=== PATIENT | male | born 1945 | race Caucasian/White ===

== ENCOUNTER 2021-06-21 07:07 | Day surgery (SDC) | payer MEDICARE, OTHER, SELFPAY ==
[2021-06-14 10:42] VITALS: BMI 26.6
--- NOTE | 2021-06-20 12:45 | HO.ANESPROP2 ---
HPI - Anesthesia Eval Consult details Narrative: 76yo M for Colonoscopy Xarelto for afib PMFSH Active Problems Active Problems: All Active Problems (Updated 06/14/21 @ 10:44 by Brooke Pagan RN) Benign prostate hyperplasia (Acute) Adult general medical exam (Acute) Neuropathy (Acute) Screening for colon cancer (Acute) Hyperlipidemia (Acute) Past Medical History Medical History (Updated 06/14/21 @ 10:44 by Brooke Pagan RN) Asthma Atrial fibrillation BPH (benign prostatic hyperplasia) Cervical cancer screening COVID-19 vaccine series completed Depression GERD (gastroesophageal reflux disease) Hx of pancreatitis Hyperlipidemia Polyneuropathy Screening for colon cancer Sleep apnea Ulcerative colitis Family History Family History (Updated 06/13/21 @ 13:26 by Linda Deluna) Father Past heart attack Mother Past heart attack Family/Other Colon cancer Surgical History Surgical History (Updated 06/14/21 @ 10:39 by Brooke Pagan RN) History of endoscopy History of lumbar laminectomy Hx of colonoscopy Hx of inguinal hernia repair Social History Social History Housing: House Are you a primary nurse healthcare manager to a significant other at home: No Do you presently have visiting nurse or other home services: No Alcohol intake: never Patient Tobacco Use Status: Former Tobacco user Quit Date: age 26 Tobacco use type: Cigarette e-Cigarette/Vaping Use: Never Used Second Hand Smoke Exposure: No Use of substances other than those prescribed or required for medical reasons: No Have you been hit, kicked, punched, or otherwise hurt by someone within the past year? If so, by whom?: No Are you DNR?: No Advance Directives Information Provided: Yes (states is his ) Advance Directives on File: No Recently lost weight without trying: No Eating poorly because of decreased appetite: No Nutrition Risks: Surgical patient >75years Poor oral hygiene: No service: No Current occupational status: retired Meds Allergies Allergy/AdvReac Type Severity Reaction Status Date / Time No Known Allergies [NKA] Allergy Verified 06/13/21 13:25 Home Medications Medication Instructions Recorded Confirmed Last Taken Type albuterol sulfate 90 mcg/actuation 2 puff PO QID PRN 08/17/20 06/14/21 Unknown History aerosol inhaler beclomethasone dipropionate 80 1 inh INHALATION BID 08/17/20 06/14/21 06/21/21 06:30 History mcg/actuation HFA breath activated aerosol bupropion HCl 300 mg 24 hr tablet, 300 mg PO QAM 08/17/20 06/14/21 Unknown History extended release finasteride 5 mg tablet 5 mg PO BEDTIME 08/17/20 06/14/21 Unknown History mirtazapine 30 mg tablet 30 mg PO BEDTIME 08/17/20 06/14/21 Unknown History rivaroxaban 20 mg tablet 20 mg PO BEDTIME 08/17/20 06/14/21 Unknown History tamsulosin 0.4 mg capsule 0.4 mg PO QAM 08/17/20 06/14/21 06/21/21 06:30 History venlafaxine 37.5 mg 37.5 mg PO QAM 08/17/20 06/14/21 06/21/21 06:30 History capsule,extended release 24 hr venlafaxine 75 mg capsule,extended 75 mg PO QAM 08/17/20 06/14/21 Unknown History release 24 hr atenolol 25 mg tablet 12.5 mg PO BEDTIME 06/14/21 06/14/21 Unknown History pravastatin 80 mg tablet 80 mg PO BEDTIME 06/14/21 06/14/21 Unknown History Exam Exam Date and Time: June 20, 2021 1245 Height,Weight and Vital Signs: Height 5 ft 6 in Weight 74.843 kg Assessment and Plan Assessment Anesthesia Assessment: Chart Reviewed
[2021-06-21 07:36] VITALS: BP 123/91; PULSE 120; RESP 18; TEMP 36.1; O2SAT 98
[2021-06-21] MEDS: Lactated Ringers 1,000 ML 100 ML IVCONT (07:54)
--- NOTE | 2021-06-21 08:24 | P.CONAN_ITS ---
[facility] Active Problems Active Problems: All Active Problems (Updated 06/14/21 @ 10:44 by Brooke arias RN) Benign prostate hyperplasia (Acute) Adult general medical exam (Acute) Neuropathy (Acute) Screening for colon cancer (Acute) Hyperlipidemia (Acute) Past Medical History Medical History (Updated 06/14/21 @ 10:44 by Brooke Pagan RN) Asthma Atrial fibrillation BPH (benign prostatic hyperplasia) Cervical cancer screening COVID-19 vaccine series completed Depression GERD (gastroesophageal reflux disease) Hx of pancreatitis Hyperlipidemia Polyneuropathy Screening for colon cancer Sleep apnea Ulcerative colitis Family History Family History (Updated 06/13/21 @ 13:26 by Linda Deluna) Father Past heart attack Mother Past heart attack Family/Other Colon cancer Family history of problems with anesthesia: No Surgical History Surgical History (Updated 06/14/21 @ 10:39 by Brooke Pagan RN) History of endoscopy History of lumbar laminectomy Hx of colonoscopy Hx of inguinal hernia repair History of Problems with Anesthesia: No Social History Social History Housing: House Are you a primary director career to a significant other at home: No Do you presently have visiting nurse or other home services: No Alcohol intake: never Patient Tobacco Use Status: Former Tobacco user Quit Date: age 26 Tobacco use type: Cigarette e-Cigarette/Vaping Use: Never Used Second Hand Smoke Exposure: No Use of substances other than those prescribed or required for medical reasons: No Have you been hit, kicked, punched, or otherwise hurt by someone within the past year? If so, by whom?: No Are you DNR?: No Advance Directives Information Provided: Yes (states is his ) Advance Directives on File: No Recently lost weight without trying: No Eating poorly because of decreased appetite: No Nutrition Risks: Surgical patient >75years Poor oral hygiene: No service: No Current occupational status: retired Meds Allergies Allergy/AdvReac Type Severity Reaction Status Date / Time No Known Allergies [NKA] Allergy Verified 06/13/21 13:25 Active Medications: Current Medications Generic Name Dose Route Start Last Admin Trade Name Freq PRN Reason Stop Dose Admin Albuterol Sulfate 2.5 mg 06/21/21 07:17 Albuterol Sulfate (0.083%) 2.5 Mg/3 Ml Vial.Neb INHALE ONCE PRN Shortness of Breath/Wheezing Lactated Ringer's 1,000 mls @ 100 mls/hr 06/21/21 07:30 06/21/21 07:54 Lr IVCONT 100 mls/hr .Q10H FIDELIA Administration Sodium Biphosphate/Sodium Phosphate 133 ml 06/21/21 07:17 Sodium Phosphate,[place]-Dibasic 133 Ml Enema VA ONCE PRN Poor Colonoscopy Prep Results Home Medications Medication Instructions Recorded Confirmed Last Taken Type albuterol sulfate 90 mcg/actuation 2 puff PO QID PRN 08/17/20 06/14/21 Unknown History aerosol inhaler beclomethasone dipropionate 80 1 inh INHALATION BID 08/17/20 06/14/21 06/21/21 06:30 History mcg/actuation HFA breath activated aerosol bupropion HCl 300 mg 24 hr tablet, 300 mg PO QAM 08/17/20 06/14/21 Unknown History extended release finasteride 5 mg tablet 5 mg PO BEDTIME 08/17/20 06/14/21 Unknown History mirtazapine 30 mg tablet 30 mg PO BEDTIME 08/17/20 06/14/21 Unknown History rivaroxaban 20 mg tablet 20 mg PO BEDTIME 08/17/20 06/14/21 Unknown History tamsulosin 0.4 mg capsule 0.4 mg PO QAM 08/17/20 06/14/21 06/21/21 06:30 History venlafaxine 37.5 mg 37.5 mg PO QAM 08/17/20 06/14/21 06/21/21 06:30 History capsule,extended release 24 hr venlafaxine 75 mg capsule,extended 75 mg PO QAM 08/17/20 06/14/21 Unknown Hist ory release 24 hr atenolol 25 mg tablet 12.5 mg PO BEDTIME 06/14/21 06/14/21 Unknown History pravastatin 80 mg tablet 80 mg PO BEDTIME 06/14/21 06/14/21 Unknown History Exam Exam Date and Time: June 21, [id number] Height,Weight and Vital Signs: Height 5 ft 6 in Weight 74.843 kg Last Vital Signs Temp 96.9 F 06/21/21 07:36 Pulse 120 H 06/21/21 07:36 Resp 18 06/21/21 07:36 BP 123/91 H 06/21/21 07:36 Pulse Ox 98 06/21/21 07:36 Airway Mallampati Class: II TM Dist: >3cm Neck ROM: Full Heart: rrr Lungs: cta Assessment and Plan Assessment Anesthesia Assessment: Anesthesia Plan Discussed and Chart Reviewed Final Anesthetic Review Family History of Problems with Anesthesia: No History of Problems with Anesthesia: No NPO: Yes ASA Class: III Final Preanesthetic Review: No Changes in Pt Med Stat, Meds/Allgs Chart Reviewed and Consent Obtained/Reviewed Patient Risk: Intermediate Procedure Risk: Intermediate Anesthetic Plan Anesthetic Plan: MAC: Disposition: Standard PACU
[2021-06-21 09:30] VITALS: BP 106/54; PULSE 58; RESP 18; TEMP 36.8; O2SAT 96
--- NOTE | 2021-06-21 09:30 | P.BOP_ITS ---
Brief Operative Note Date of Service: 06/21/21 Pre-op diagnosis: Ulcerative colitis, Screening, Hx of polyps Post-op diagnosis: other (Diverticulosis, Internal hemorrhoids) Procedure: Colonoscopy to the cecum and TI with biopsies Surgeon: Matthew Allison Anesthesia: MAC Was an Electro Mechanical Designer used for this Procedure?: No Estimated blood loss (mL): 5.0 Pathology: other (A. Ascending colon B. Transverse colon C. Descending colon D. Sigmoid colon E. Rectum) Condition: stable Disposition: PACU
[2021-06-21 09:45] VITALS: BP 106/54; PULSE 54; RESP 16; TEMP 36.8; O2SAT 96
--- NOTE | 2021-06-21 09:55 | OP_ITS ---
SURGEON: Matthew Allison MD INDICATIONS: The patient presents for evaluation of colorectal cancer screening, personal history of tubular adenoma of the colon, and longstanding history of ulcerative colitis. Full consent has been obtained from him for this, including risks of bleeding and perforation. PREOPERATIVE DIAGNOSIS: POSTOPERATIVE DIAGNOSIS: PROCEDURE PERFORMED: Colonoscopy to the cecum and terminal ileum with multiple biopsies. ESTIMATED BLOOD LOSS: COMPLICATIONS: ANESTHESIA: Monitored anesthesia care. ASSISTANTS: SPECIMENS: PREOPERATIVE DIAGNOSES: Colorectal cancer screening, history of ulcerative colitis, history of colon polyps. POSTOPERATIVE DIAGNOSES: Colorectal cancer screening, history of ulcerative colitis, history of colon polyps, diverticulosis and internal hemorrhoids. DESCRIPTION OF PROCEDURE: The patient was placed in the left lateral decubitus position. The digital rectal exam revealed no abnormalities. The Olympus video pediatric colonoscope was entered into the rectum and advanced easily to the cecum. Once in the cecum, I did identify normal-appearing cecal pouch with appendiceal orifice and a normal-appearing ileocecal valve. The terminal ileum was cannulated and appeared normal. The scope was withdrawn back in the colon. The entire cecum and ileocecal valve appeared normal. The scope was then slowly withdrawn assessing all mucosal surfaces carefully. Preparation was excellent. I did not visualize any sign of polyps, colitis, nor angiodysplasia. There was a moderate amount of sigmoid diverticulosis. In the rectum, scope was retroflexed visualizing small internal hemorrhoids, but no other pathology. The rectal mucosa appeared normal. The scope was straightened. Of note, given his longstanding history of ulcerative colitis, I did obtain random biopsies in the ascending colon, transverse colon, descending colon, sigmoid colon, and rectum. The scope was withdrawn from the patient. He tolerated the procedure well and was returned to recovery area in stable condition. IMPRESSION: 1. History of ulcerative colitis, rule out dysplasia. 2. Diverticulosis. 3. Internal hemorrhoids. PLAN: Given today's negative exam in regard to polyps and no sign of any active colitis, I do not think he will need any further screening colonoscopies going forward given his age now was 76. He was advised not to use any aspirin and NSAIDs for at least a week. He was advised to resume his Xarelto in 48 hours. If things are stable, he will see me on a p.r.n. basis, but will call me if his colitis flares up. He presently is not on any medication for that. Matthew Allison MD RMJennifer/WILMA / [id number]
== END 2021-06-21 10:27 | disposition home or self-care (01) ==
PROVIDERS: PCP Internal Medicine; Visit Provider Internal Medicine
PROC: 0DJD8ZZ Inspection of Lower Intestinal Tract, Via Natural or Artificial Opening Endoscopic (ICD-10-PCS; CPT 45378; principal; 2021-06-21 08:20)
DX: Z12.11 Encounter for screening for malignant neoplasm of colon (principal); K57.30 Diverticulosis of large intestine without perforation or abscess without bleeding; K64.8 Other hemorrhoids; Z86.010 Personal history of colon polyps; Z87.19 Personal history of other diseases of the digestive system; I10 Essential (primary) hypertension; I48.91 Unspecified atrial fibrillation; Z79.01 Long term (current) use of anticoagulants; Z79.899 Other long term (current) drug therapy
CPT/HCPCS: 45380; 88305

== ENCOUNTER 2023-05-13 09:17 | Outpatient (AMB) | payer MEDICARE, OTHER, SELFPAY ==
--- NOTE | 2023-05-13 09:21 | MHC.PC.OV ---
Vital Signs 05/13/23 09:23 Height 5 ft 6 in Weight 175 lb BMI 28.2 BP 110/60 Blood Pressure Location Lt brachial Position Sitting Pulse 59 Pulse Source Pulse Oximeter Pulse Oximetry (%) 97 Oxygen Delivery Method Room Air Intake Visit Reasons: 3M. F/U-Asthma Intake Note: Patient is here to follow up on asthma. Tire Building Supervisor Required: No Finish Painter: Not Required per policy Accompanied by: Self / Same As Patient Allergies No Known Allergies [NKA] Allergy (Verified 05/13/23 09:22) Medication List - Last Reconciled 05/13/23 by Alfonso Sims MD albuterol sulfate 90 mcg/actuation 2 puffs PO QID PRN atenolol 12.5 mg (1/2 x 25 mg) PO BEDTIME beclomethasone dipropionate 80 mcg/actuation 1 inh inhalation BID finasteride 5 mg PO BEDTIME flecainide 100 mg PO BID mirtazapine 30 mg PO BEDTIME omeprazole 40 mg PO DAILY pravastatin 80 mg PO BEDTIME rivaroxaban 20 mg PO BEDTIME tamsulosin 0.4 mg PO QAM venlafaxine ER 75 mg PO QAM venlafaxine ER 37.5 mg PO QAM Tobacco use date assessed: 05/13/23 Fall risk assessment: No Falls in past year Last assessed Fall Risk: 05/13/23 Dental Screening Dental Screen Date: 05/13/23 Did you have a dental visit in the last 12 months?: Yes Did you have a dental problem in the last 6 months where you did not have access to dental care?: No Was dental information given to patient?: Patient has dentist HPI 3M. F/U-Asthma HPI Details asthma hyperlipidemia and afib; doing well PFSH Medical History (Updated 05/13/23 @ 10:00 by Alfonso Sims MD) Asthma Atrial fibrillation BPH (benign prostatic hyperplasia) Cervical cancer screening COVID-19 vaccine series completed Depression GERD (gastroesophageal reflux disease) Hx of pancreatitis Hyperlipidemia Polyneuropathy Screening for colon cancer Sleep apnea Ulcerative colitis Surgical History History of endoscopy History of lumbar laminectomy Hx of colonoscopy Hx of inguinal hernia repair Family History Father Past heart attack Mother Past heart attack Family/Other Colon cancer Social History Housing: House Are you a primary medicare insurance specialist to a significant other at home: No Do you presently have visiting nurse or other home services: No Alcohol intake: never Patient Tobacco Use Status: Former Tobacco user Quit Date: age 26 Tobacco use type: Cigarette e-Cigarette/Vaping Use: Never Used Second Hand Smoke Exposure: No service: No Current occupational status: retired Cognitive needs: No Hearing needs: No Vision needs: Yes Questionnaire PHQ-9 Over the last 2 weeks, how often have you been bothered by any of the following problems? 1. Little interest or pleasure in doing things: not at all 2. Feeling down, depressed, or hopeless: not at all 3. Trouble falling or staying asleep, or sleeping too much: not at all 4. Feeling tired or having little energy: not at all 5. Poor appetite or overeating: not at all 6. Feeling bad about yourself - or that you are a failure or have let yourself or your family down: not at all 7. Trouble concentrating on things, such as reading the newspaper or watching television: not at all 8. Moving or speaking so slowly that other people could have noticed. Or the opposite - being so fidgety or restless that you have been moving around a lot more than usual: not at all 9. Thoughts that you would be better off or of hurting yourself in some way: not at all Total score: 0 Depression Screening Interpretation: Negative 98607 - PHQ-9 Billing: Yes Source: Developed by Drs. Matthew Andrea, Lindsey Crowell, Jorge Luis Mcleod and colleagues, with an educational rasheeda from [employer]. Thrive Questionnaire Date Thrive assessed: 05/13/23 I am a: Patient What is your living situation today?: I have a steady place to live Within the past 12 months, did the food you bought not last and you didn't have the money to get more?: Never true Within the past 12 months, did you worry whether your food would run out before you got money to buy more?: Never true Do you have trouble paying for medicines?: No Do you have trouble getting transportation to medical appointments?: No Do you have trouble paying your heating and electricity bill?: No Do you have trouble taking care of your child, family member or friend?: No Do you have trouble with day-to-day activities such as bathing, preparing meals, shopping, managing finances, etc.?: No Are you currently unemployed and looking for a job?: No Are you interested in more education?: No Currently or been in a relationship where the following occur: no concerns reported AUDIT C Alcohol Use Questionnaire (AUDIT-C) 1. How often do you have a drink containing alcohol?: Never Total Score: 0 Score Reviewed/Action Taken: Yes ALFA-7 AMB Questionnaire ALFA-7 Date ALFA - 7 assessed: 05/13/23 Feeling nervous, anxious, or on edge: 0 = Not at all Not being able to stop or control worryin = Not at all Worrying too much about different things: 0 = Not at all Trouble relaxin = Not at all Being so restless that it is hard to sit still: 0 = Not at all Becoming easily annoyed or irritable: 0 = Not at all Feeling afraid as if something awful might happen: 0 = Not at all Total ALFA-7 score (0-4 normal; 5-9 mild; 10-14 moderate; 15-21 severe): 0 Source: Developed by Drs. Matthew Andrea, Lindsey Crowell, Jorge Luis Mcleod and colleagues, with an educational rasheeda from [employer]. ALFA-7 Assessment Billing ALFA-7 Assessment Tool: ALFA-7 Assessment 69806 Review of Systems Const Denies chills, Denies headache(s) and Denies weight loss ENT Denies headache(s) Card Denies chest pain, Denies syncope, Denies irregular heart rhythm and Denies dyspnea Resp Denies chest congestion, Denies cough and Denies dyspnea GI Denies abdominal pain, Denies change in stool character, Denies nausea and Denies vomiting Musc Denies deformity and Denies joint swelling Neuro Denies syncope and Denies headache(s) Physical exam (Primary Care) Vital Signs: Last Vital Signs Pulse 59 05/13/23 09:23 BP 110/60 05/13/23 09:23 Pulse Ox 97 05/13/23 09:23 Oxygen Delivery Method Room Air 05/13/23 09:23 BMI result Body Mass Index 28.2 Tobacco/Smoking Status: Tobacco use Status Tobacco use date assessed 05/13/23 05/13/23 09:27 Patient Tobacco Use Status Former Tobacco user 05/13/23 09:27 Tobacco use type Cigarette 05/13/23 09:27 e-Cigarette/Vaping Use Never Used 05/13/23 09:27 PHQ-9: PHQ-9 Score PHQ-9: Total score 0 05/13/23 09:27 Depression Screening Interpretation: Negative Thrive Assessment: Date of Thrive Assessment Date Thrive assessed 05/13/23 05/13/23 09:27 Currently or been in a relationship where the following occur: no concerns reported Const General: cooperative Resp Effort & Inspection: normal respiratory effort Auscultation: clear to auscultation bilaterally Percussion: percussion normal Cardio Jugular venous distension: no JVD Rate: regular rate Rhythm: regular rhythm GI Inspection: Yes normal to inspection Assessment and Plan Assessment & Plan (1) Atrial fibrillation: Code(s): I48.91 - Unspecified atrial fibrillation Plan: stable; per cardiology (2) Hyperlipidemia: Code(s): E78.5 - Hyperlipidemia, unspecified Qualifiers: Hyperlipidemia type: unspecified Qualified Code(s): E78.5 - Hyperlipidemia, unspecified Plan: due for labs (3) Asthma: Code(s): J45.909 - Unspecified asthma, uncomplicated Plan: stable Orders: Orders Comprehensive [place]. Panel Fast Today N28.9 - Disorder of kidney and ureter, unspecified Lipid Panel Today E78.5 - Hyperlipidemia, unspecified Prostate Specific Antigen Scr Today Z00.00 - Encounter for general adult medical examination without abnormal findings Thyroid Stimulating Hormone Today E03.9 - Hypothyroidism, unspecified Complete Blood Count Auto Diff Today D64.9 - Anemia, unspecified Coding Level of Care Code Est Pt Level 4 (86035) Diagnoses Atrial fibrillation I48.91 Hyperlipidemia E78.5 Hyperlipidemia type: unspecified Asthma J45.909 Additional Codes ALFA-7 Assessment Billing - ALFA-7 Assessment Tool: ALFA-7 Assessment 94593 ([id number])
[2023-05-13 09:23] VITALS: BP 110/60; PULSE 59; O2SAT 97; BMI 28.2
== END 2023-05-13 09:53 | disposition home or self-care (01) ==
PROVIDERS: PCP Internal Medicine; Visit Provider Internal Medicine
DX: I48.91 Unspecified atrial fibrillation (principal); E78.5 Hyperlipidemia, unspecified; J45.909 Unspecified asthma, uncomplicated
CPT/HCPCS: 99214

== ENCOUNTER 2023-05-14 09:52 | Outpatient (REF) | payer MEDICARE, OTHER, SELFPAY ==
[2023-05-14 10:21] LABS: MANUAL DIFF FLAG NO
[2023-05-14 11:13] LABS: Basophils Percent Auto 0.5 % (0-2); Eosinophils Absolute Auto 0.2 X10*3/uL (0.0-0.4); Eosinophils Percent Auto 2.2 % (0-4); Hematocrit 43.6 % (42.0-52.0); Hemoglobin 14.5 g/dl (14.0-18.0); Imm Gran Abs Auto 0.03 X10*3/uL (0.00-0.03); Imm Gran Pct Auto 0.4 % (0.0-0.4); Lymphocytes Absolute Auto 2.1 X10*3/uL (1.2-4.9); Lymphocytes Percent Auto 28.6 % (20-40); Mean Corpuscular HGB Conc 33.3 g/dl (31.0-36.0); Mean Corpuscular Hemoglobin 30.1 pg (27.0-33.0); Mean Corpuscular Volume 90.6 fL (80.0-98.0); Mean Platelet Volume 9.4 fL (9.4-12.4); Monocytes Absolute Auto 0.4 X10*3/uL (0.1-1.2); Monocytes Percent Auto 5.6 % (2-11); Neutrophils Absolute Auto 4.6 x10*3/uL (2.0-8.3); Neutrophils Percent Auto 62.7 % (45-73); Platelet Count 339 X10*3/uL (160-400); Red Blood Count 4.81 X10*6/uL (4.60-5.80); Red Cell Distribution Width 14.6 % (11.0-16.0); White Blood Count 7.4 X10*3/uL (4.8-10.8)
[2023-05-14 12:11] LABS: Prostate Specific Antigen Scr 1.28 ng/mL (<0.05-4.0)
[2023-05-14 12:47] LABS: Alanine Aminotransferase 20 U/L (0-40); Albumin Level 3.8 g/dL (3.5-5.0); Alkaline Phosphatase 94 U/L (39-117); Anion Gap 17 (12-20); Aspartate Amino Transferase 20 U/L (5-37); Bilirubin Total 0.6 mg/dL (0.0-1.0); Blood Urea Nitrogen 20 mg/dL (9-16); Calcium 9.6 mg/dL (8.4-10.2); Carbon Dioxide 25 mmol/L (22-29); Chloride 105 mmol/L (96-108); Cholesterol 193 mg/dL; Estimated Glomerular Filt Rate > 60; Glucose Fasting 90 mg/dL (60-99); HDL Cholesterol 61 mg/dL; LDL Cholesterol Calculated 118 mg/dl; Potassium 4.7 mmol/L (3.3-5.1); Sodium 142 mmol/L (135-145); Thyroid Stimulating Hormone 0.58 uIU/mL (0.32-4.0); Total Protein 6.9 g/dL (6.5-8.0); Triglycerides 73 mg/dL
== END 2023-05-14 09:53 | disposition home or self-care (01) ==
LOC: HO.LAB 09:52
PROVIDERS: PCP Internal Medicine; Visit Provider Internal Medicine
DX: Z00.00 Encounter for general adult medical examination without abnormal findings (principal); N28.9 Disorder of kidney and ureter, unspecified; E78.5 Hyperlipidemia, unspecified; D64.9 Anemia, unspecified; E03.9 Hypothyroidism, unspecified; Z12.5 Encounter for screening for malignant neoplasm of prostate
CPT/HCPCS: 36415; 80053; 80061; 84153; 84443; 85025

== ENCOUNTER 2024-03-31 13:30 | Outpatient (AMB) | payer MEDICARE, OTHER, SELFPAY ==
[2024-03-31 13:33] VITALS: BP 127/80; PULSE 72; O2SAT 98; BMI 27.6
--- NOTE | 2024-03-31 13:35 | A.OFFVIS_ITS ---
Intake Vital Signs 03/31/24 13:33 Height 5 ft 6 in Weight 171 lb BMI 27.6 BP 127/80 Blood Pressure Location Lt brachial Position Sitting Pulse 72 Pulse Source Pulse Oximeter Pulse Oximetry (%) 98 Oxygen Delivery Method Room Air Intake Visit Reasons: AWV Allergies No Known Allergies [NKA] Allergy (Verified 03/31/24 13:34) Medication List - Last Reconciled 04/01/24 by Alfonso Sims MD albuterol sulfate 90 mcg/actuation 2 puffs PO QID PRN atenolol 12.5 mg (1/2 x 25 mg) PO BEDTIME beclomethasone dipropionate 80 mcg/actuation 1 inh inhalation BID finasteride 5 mg PO BEDTIME flecainide 100 mg PO BID mirtazapine 30 mg PO BEDTIME omeprazole 40 mg PO DAILY pravastatin 80 mg PO BEDTIME rivaroxaban 20 mg PO BEDTIME tamsulosin 0.4 mg PO QAM venlafaxine ER 75 mg PO QAM venlafaxine ER 37.5 mg PO QAM HPI AWV HPI Details htn; afib in remission; hyperlip PFSH Medical History (Updated 04/01/24 @ 09:39 by Alfonso Sims MD) COVID-19 vaccine series completed Hx of pancreatitis Polyneuropathy GERD (gastroesophageal reflux disease) Ulcerative colitis BPH (benign prostatic hyperplasia) Screening for colon cancer Cervical cancer screening Sleep apnea Atrial fibrillation Asthma Depression Hyperlipidemia Surgical History Hx of inguinal hernia repair Hx of colonoscopy History of endoscopy History of lumbar laminectomy Family History Father Past heart attack Mother Past heart attack Family/Other Colon cancer Social History Housing: House Are you a primary resident care assistant to a significant other at home: No Do you presently have visiting nurse or other home services: No Alcohol intake: never Patient Tobacco Use Status: Former Tobacco user Tobacco use type: Cigarette e-Cigarette/Vaping Use: Never Used Second Hand Smoke Exposure: No service: No Current occupational status: retired Cognitive needs: No Hearing needs: No Vision needs: Yes Questionnaire Medicare Wellness Checkup [age] What gender do you identify with?: male During the past 4 weeks, how much have you been bothered by emotional problems such as feeling anxious, depressed, irritable, sad or downhearted, and blue?: not at all During the past 4 weeks, has your physical & emotional health limited your social activities with family, friends, neighbors, or groups?: not at all During the past 4 weeks, how much bodily pain have you generally had?: very mild pain During the past 4 weeks, was someone available to help you if you needed & wanted help?: yes, as much as I wanted During the past 4 weeks, what was the hardest physical activity you could do for at least 2 minutes?: heavy Can you get to places out of walking distance without help? (For eg., can you travel alone on buses, taxis or drive your car?): Yes Can you go shopping for groceries or clothes without someone's help?: Yes Can you prepare your own meals?: Yes Can you do your housework without help?: Yes Because of any health problems, do you need the help of another person with your personal care needs such as eating, bathing, dressing or getting around the house?: No Can you handle your own money without help?: Yes During the past 4 weeks, how would you rate your health in general?: very good During the past 4 weeks how have things been going for you?: very well; could hardly better Are you having difficulties driving your car?: no During past 4 weeks, have you been bothered by the following: never: Falling or dizzy when standing up, Trouble eating well?, Teeth or denture problems? and Problems using the telephone? and always: Tiredness or fatigue? Have you fallen 2 or more times in the past year?: No Are you afraid of falling?: No Are you a smoker?: no During the past 4 weeks, how many drinks of wine, beer, or other alcoholic beverages did you have?: 2-5 drinks per week Do you exercise for about 20 minutes 3 or more times a week?: yes, most of the time Have you been given information to help with the following?: no: Hazards in your house that might hurt you? and no: Keeping track of your medications? How often do you have trouble taking medicines the way you have been told to take them?: I always take medicine as prescribed How confident are you that you can control & manage most of your health problems?: very confident What is your race?: White Mini Mental State Exam (MMSE) Orientation What is the (year) (season) (date) (day) (month)?: year, season, date, day and month Where are we (state) (county) (town or city) (hospital) (floor)?: state, county, town or city, hospital/clinic and floor Registration Name of 3 unrelated objects clearly and slowly, then ask patient to repeat all 3 of them. (1st repeat determines score. Make sure they can repeat all three): object 1, object 2 and object 3 Attention & Calculation (CHOOSE ONE) Spell WORLD backwards (DLROW): 5 letters Recall Ask patient to repeat the 3 items from question #3.: object 1, object 2 and object 3 Score Score: 21 Activity of Daily Living Bathing - sponge bath, tub bath or shower: receives no assistance (gets in/out by self, if usual bathing means Dressing - getting clothes from closets & drawers, including inner/outer garments & fasteners.: gets clothes & gets completely dressed without help Toileting - going to the 'toilet room' for urine/bowel elimination & cleaning self/arranging clothes: goes to toilet room, cleans self, arranges clothes without help Transfer: moves in & out of bed and chair without help (may use support object) Continence: controls urination/bowel movements completely by self Feeding: feeds self without help Total Score: 0 Information obtained from: patient Using telephone: independent Traveling: independent Shopping: independent Preparing meals: independent Housework: independent Taking medicine: independent Managing money: independent PHQ-9 Over the last 2 weeks, how often have you been bothered by any of the following problems? 1. Little interest or pleasure in doing things: not at all 2. Feeling down, depressed, or hopeless: not at all 3. Trouble falling or staying asleep, or sleeping too much: not at all 4. Feeling tired or having little energy: not at all 5. Poor appetite or overeating: not at all 6. Feeling bad about yourself - or that you are a failure or have let yourself or your family down: not at all 7. Trouble concentrating on things, such as reading the newspaper or watching television: not at all 8. Moving or speaking so slowly that other people could have noticed. Or the opposite - being so fidgety or restless that you have been moving around a lot more than usual: not at all 9. Thoughts that you would be better off or of hurting yourself in some way: not at all Total score: 0 Depression Screening Interpretation: Negative Depression Screening Done: Yes 56921 - PHQ-9 Billing: Yes Source: Developed by Drs. Matthew Andrea, Lindsey Crowell, Jorge Luis Mcleod and colleagues, with an educational rasheeda from [employer]. Review of Systems Const Denies chills, Denies fatigue, Denies headache(s) and Denies weight loss Eyes Denies change in vision, Denies diplopia and Denies eye pain ENT Reports Normal hearing present, Denies vertigo, Denies dizziness, Denies headache(s) and Denies nasal discharge Card Denies chest pain, Denies rapid heart rate and Denies dyspnea on exertion Resp Denies chest congestion, Denies cough, Denies pain with cough and Denies dyspnea on exertion GI Denies abdominal pain, Denies hematochezia and Denies change in bowel habits Musc Denies myalgias, Denies arthralgias and Denies joint swelling Skin/Breast Denies lesions and Denies unusual bruising Neuro Reports Normal hearing present, Denies vertigo, Denies dizziness, Denies headache(s) and Denies focal weakness Endo Denies fatigue Physical Exam Vital Signs: Last Vital Signs Pulse 72 03/31/24 13:33 BP 127/80 03/31/24 13:33 Pulse Ox 98 03/31/24 13:33 Oxygen Delivery Method Room Air 03/31/24 13:33 BMI result Body Mass Index 27.6 Neuro Cranial nerves: Yes Normal hearing present Assessment & Plan Assessment & Plan (1) Encounter for initial annual wellness visit (AWV) in Medicare patient: Code(s): Z00.00 - Encounter for general adult medical examination without abnormal findings Plan: rhomberg and whisper tests nl (2) Atrial fibrillation: Code(s): I48.91 - Unspecified atrial fibrillation Plan: stable; per cardiology (3) Hyperlipidemia: Code(s): E78.5 - Hyperlipidemia, unspecified Qualifiers: Hyperlipidemia type: unspecified Qualified Code(s): E78.5 - Hyperlipidemia, unspecified Plan: stable; same rx Orders: Orders Lipid Panel 03/31/24 Z13.220 - Encounter for screening for lipoid disorders Thyroid Stimulating Hormone 03/31/24 Z13.29 - Encounter for screening for other suspected endocrine disorder Complete Blood Count Auto Diff 03/31/24 Z13.0 - Encounter for screening for diseases of the blood and blood-forming organs and certain disorders involving the immune mechanism Prostate Specific Antigen Scr 03/31/24 Z00.00 - Encounter for general adult medical examination without abnormal findings Comprehensive [place]. Panel Fast 03/31/24 Z13.9 - Encounter for screening, unspecified Quality Reporting (2019) Depression/Bipolar (159/160/161/177) PHQ-9: Total score: 0 Coding Level of Care Code Medicare First (G0438) Diagnoses Encounter for initial annual wellness visit (AWV) in Medicare patient Z00.00 Atrial fibrillation I48.91 Hyperlipidemia, unspecified hyperlipidemia type E78.5 Hyperlipidemia type: unspecified CPT Codes Advance Care Planning - Time spent: 1-15 minutes, on File ([id number]) Advance Care Planning - Advance Care Planning discussion: On file, no changes ([id number]) Advance Care Planning Advance Care Planning discussion: On file, no changes Forms completed: Health Care Proxy Time spent: 1-15 minutes, on File
== END 2024-03-31 13:58 | disposition home or self-care (01) ==
PROVIDERS: PCP Internal Medicine; Visit Provider Internal Medicine
DX: Z00.00 Encounter for general adult medical examination without abnormal findings (principal); I48.91 Unspecified atrial fibrillation; E78.5 Hyperlipidemia, unspecified
CPT/HCPCS: 1123F; G0438; G0439

== ENCOUNTER 2024-10-21 11:27 | Outpatient (AMB) | payer MEDICARE, OTHER, SELFPAY ==
[2024-10-21 11:35] VITALS: BP 110/62; PULSE 78; O2SAT 96; BMI 28.6
--- NOTE | 2024-10-21 11:35 | MHC.PC.OV ---
Vital Signs 10/21/24 11:35 Height 5 ft 6 in Weight 177 lb 6 oz BMI 28.6 BP 110/62 Blood Pressure Location Lt brachial Position Sitting Pulse 78 Pulse Source Pulse Oximeter Pulse Oximetry (%) 96 Oxygen Delivery Method Room Air Intake Visit Reasons: 6 mo f/u [place] Required: No Accompanied by: Self / Same As Patient Allergies No Known Allergies [NKA] Allergy (Verified 10/21/24 11:39) Medication List - Last Reconciled 10/22/24 by Alfonso Sims MD albuterol sulfate 90 mcg/actuation 2 puffs PO QID PRN atenolol 12.5 mg (1/2 x 25 mg) PO BEDTIME beclomethasone dipropionate 80 mcg/actuation 1 inh inhalation BID finasteride 5 mg PO BEDTIME flecainide 100 mg PO BID mirtazapine 30 mg PO BEDTIME omeprazole 40 mg PO DAILY pravastatin 80 mg PO BEDTIME rivaroxaban 20 mg PO BEDTIME tamsulosin 0.4 mg PO QAM venlafaxine ER 75 mg PO QAM venlafaxine ER 37.5 mg PO QAM Tobacco use date assessed: 10/21/24 Fall risk assessment: No Falls in past year Last assessed Fall Risk: 10/21/24 Dental Screening Dental Screen Date: 10/21/24 Did you have a dental visit in the last 12 months?: Yes Did you have a dental problem in the last 6 months where you did not have access to dental care?: No Was dental information given to patient?: Patient has dentist HPI 6 mo f/u HPI Details hyperlipidemia on rx; compliant with regimen PFSH Medical History (Updated 04/01/24 @ 09:39 by Alfonso Sims MD) COVID-19 vaccine series completed Hx of pancreatitis Polyneuropathy GERD (gastroesophageal reflux disease) Ulcerative colitis BPH (benign prostatic hyperplasia) Screening for colon cancer Cervical cancer screening Sleep apnea Atrial fibrillation Asthma Depression Hyperlipidemia Surgical History Hx of inguinal hernia repair Hx of colonoscopy History of endoscopy History of lumbar laminectomy Family History Father Past heart attack Mother Past heart attack Family/Other Colon cancer Social History (Reviewed 05/13/23 @ 09:21 by ANJALI Bush Housing: House Are you a primary out of school hours care worker to a significant other at home: No Do you presently have visiting nurse or other home services: No Alcohol intake: never Patient Tobacco Use Status: Former Tobacco user Tobacco use type: Cigarette e-Cigarette/Vaping Use: Never Used Second Hand Smoke Exposure: No service: No Current occupational status: retired Cognitive needs: No Hearing needs: No Vision needs: Yes Questionnaire PHQ-9 Over the last 2 weeks, how often have you been bothered by any of the following problems? 1. Little interest or pleasure in doing things: not at all 2. Feeling down, depressed, or hopeless: not at all 3. Trouble falling or staying asleep, or sleeping too much: not at all 4. Feeling tired or having little energy: not at all 5. Poor appetite or overeating: not at all 6. Feeling bad about yourself - or that you are a failure or have let yourself or your family down: not at all 7. Trouble concentrating on things, such as reading the newspaper or watching television: not at all 8. Moving or speaking so slowly that other people could have noticed. Or the opposite - being so fidgety or restless that you have been moving around a lot more than usual: not at all 9. Thoughts that you would be better off or of hurting yourself in some way: not at all Total score: 0 Depression Screening Interpretation: Negative Depression Screening Done: Yes 77587 - PHQ-9 Billing: Yes Source: Developed by Drs. Matthew Andrea, Lindsey Crowell, Jorge Luis Mcleod and colleagues, with an educational rasheeda from [employer]. Thrive Questionnaire Date Thrive assessed: 10/21/24 I am a: Patient What is your living situation today?: I have a steady place to live Within the past 12 months, did the food you bought not last and you didn't have the money to get more?: Never true Within the past 12 months, did you worry whether your food would run out before you got money to buy more?: Never true Do you have trouble paying for medicines?: No Do you have trouble getting transportation to medical appointments?: No Do you have trouble paying your heating and electricity bill?: No Do you have trouble taking care of your child, family member or friend?: No Do you have trouble with day-to-day activities such as bathing, preparing meals, shopping, managing finances, etc.?: No Are you currently unemployed and looking for a job?: No Are you interested in more education?: No THRIVE Score: 0 AUDIT C Alcohol Use Questionnaire (AUDIT-C) 1. How often do you have a drink containing alcohol?: Never 3. How often do you have six or more drinks on one occasion?: Never Total Score: 0 Score Reviewed/Action Taken: Yes ALFA-7 AMB Questionnaire ALFA-7 Date ALFA - 7 assessed: 10/21/24 Feeling nervous, anxious, or on edge: 0 = Not at all Not being able to stop or control worryin = Not at all Worrying too much about different things: 0 = Not at all Trouble relaxin = Not at all Being so restless that it is hard to sit still: 0 = Not at all Becoming easily annoyed or irritable: 0 = Not at all Feeling afraid as if something awful might happen: 0 = Not at all Total ALFA-7 score (0-4 normal; 5-9 mild; 10-14 moderate; 15-21 severe): 0 Source: Developed by Drs. Matthew Andrea, Lindsey Crowell, Jorge Luis Mcleod and colleagues, with an educational rasheeda from [employer]. ALFA-7 Assessment Billing ALFA-7 Assessment Tool: ALFA-7 Assessment 52206 Review of Systems Const Denies chills, Denies headache(s) and Denies weight loss ENT Denies headache(s) Card Denies chest pain, Denies syncope, Denies irregular heart rhythm and Denies dyspnea Resp Denies chest congestion, Denies cough and Denies dyspnea GI Denies abdominal pain, Denies change in stool character, Denies nausea and Denies vomiting Musc Denies deformity and Denies joint swelling Neuro Denies syncope and Denies headache(s) Physical exam (Primary Care) Vital Signs: Last Vital Signs Pulse 78 10/21/24 11:35 BP 110/62 10/21/24 11:35 Pulse Ox 96 10/21/24 11:35 Oxygen Delivery Method Room Air 10/21/24 11:35 BMI result Body Mass Index 28.6 Tobacco/Smoking Status: Tobacco use Status Tobacco use date assessed 10/21/24 10/21/24 11:39 Patient Tobacco Use Status Former Tobacco user 10/21/24 11:39 Tobacco use type Cigarette 10/21/24 11:39 e-Cigarette/Vaping Use Never Used 10/21/24 11:39 PHQ-9: PHQ-9 Score PHQ-9: Total score 0 10/21/24 11:39 Depression Screening Interpretation: Negative Thrive Assessment: Date of Thrive Assessment Date Thrive assessed 10/21/24 10/21/24 11:39 Const General: cooperative, comfortable, no acute distress and alert Neck Neck: Yes no lymphadenopathy Thyroid: Thyroid normal Resp Effort & Inspection: normal respiratory effort Auscultation: clear to auscultation bilaterally Percussion: percussion normal Cardio Jugular venous distension: no JVD Palpation: normal PMI Rate: regular rate Rhythm: regular rhythm Heart sounds: S1 normal heart sound present and S2 normal heart sound present GI Inspection: Yes normal to inspection Palpation (GI): No hepatosplenomegaly present Skin General skin exam: no rashes or lesions noted Extrem General: Yes no clubbing, cyanosis or edema Coding Level of Care Code Est Pt Level 3 (38066) Diagnoses Hyperlipidemia, unspecified hyperlipidemia type E78.5 Hyperlipidemia type: unspecified Additional Codes ALFA-7 Assessment Billing - ALFA-7 Assessment Tool: ALFA-7 Assessment 94847 ([id number]) PHQ-9 - 41132 - PHQ-9 Billing: Yes ([id number]) Assessment & Plan Assessment & Plan (1) Hyperlipidemia: Code(s): E78.5 - Hyperlipidemia, unspecified Category: Medical Qualifiers: Hyperlipidemia type: unspecified Qualified Code(s): E78.5 - Hyperlipidemia, unspecified Plan: stable; same rx
== END 2024-10-21 11:55 | disposition home or self-care (01) ==
PROVIDERS: PCP Internal Medicine; Visit Provider Internal Medicine
DX: E78.5 Hyperlipidemia, unspecified (principal)

== ENCOUNTER → 2024-10-21 11:27 | Outpatient (BNVA) | payer MEDICARE, OTHER, SELFPAY | PROVIDERS: PCP Internal Medicine; Visit Provider Internal Medicine | DX: E78.5 Hyperlipidemia, unspecified (principal) | CPT/HCPCS: 96127; 99212 ==

== ENCOUNTER 2025-03-24 14:27 | Outpatient (AMB) | payer MEDICARE, OTHER, SELFPAY ==
[2025-03-24 14:37] VITALS: BP 132/66; PULSE 70; RESP 18; TEMP 36.9; O2SAT 97; BMI 27.2
--- NOTE | 2025-03-24 14:37 | MHC.PC.OV ---
Vital Signs 03/24/25 14:37 Height 5 ft 6 in Weight 168 lb 6.4 oz BMI 27.2 BP 132/66 Blood Pressure Location Lt brachial Position Sitting Respiration 18 Pulse 70 Pulse Source Pulse Oximeter Temp 98.5 F Temp Source Oral Pulse Oximetry (%) 97 Oxygen Delivery Method Room Air Intake Visit Reasons: GOLD DR Sims Cloud Systems Architect Required: No Accompanied by: Self / Same As Patient Allergies No Known Allergies (NKA) Allergy (Verified 03/24/25 15:02) Medication List - Last Reconciled 03/24/25 by TEODORO Stokes albuterol sulfate 90 mcg/actuation 2 puffs PO QID PRN atenolol 12.5 mg (1/2 x 25 mg) PO BEDTIME beclomethasone dipropionate 80 mcg/actuation 1 inh inhalation BID bupropion HCl XL 150 mg PO DAILY finasteride 5 mg PO BEDTIME flecainide 75 mg PO Q12H flecainide 75 mg PO BID fluticasone propion-salmeterol 250-50 mcg/dose (Wixela Inhub) 1 ea inhalation BID hydroxyzine HCl 10 mg PO BID PRN mirtazapine 30 mg PO BEDTIME omeprazole 40 mg PO DAILY pravastatin 80 mg PO BEDTIME rivaroxaban 20 mg PO DAILY tamsulosin 0.4 mg PO QAM venlafaxine ER 75 mg PO QAM venlafaxine ER 37.5 mg PO QAM Tobacco use date assessed: 03/24/25 Fall risk assessment: No Falls in past year Last assessed Fall Risk: 03/24/25 Dental Screening Dental Screen Date: 03/24/25 Did you have a dental visit in the last 12 months?: Yes Did you have a dental problem in the last 6 months where you did not have access to dental care?: No Was dental information given to patient?: Patient has dentist HPI GOLD DR Sims HPI Details The patient is a 79-year-old male presenting to transition of care from Dr. Sims, who retired. He is with a follow-up visit for the management of multiple chronic conditions, including Atrial Fibrillation, Generalized Anxiety Disorder, Asthma, and a history of Ulcerative Colitis. He has been experiencing Atrial Fibrillation for decades and underwent a cardiac ablation three years ago, with subsequent maintenance of sinus rhythm. 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 His anxiety, linked previously to Ulcerative Colitis, persists even in the remission of colitis, which has been symptom-free for six years post-azathioprine discontinuation. Anxiety management includes Wellbutrin among other medications prescribed by his mental health provider. For Asthma management, he reports a persistent cough and intermittent shortness of breath, attributed to postnasal drip rather than environmental factors, and uses inhalers consistently with limited nebulizer use due to side effects. He also deals with neuropathy symptoms, particularly in his feet, with no significant pain or tingling, while managing Benign Prostatic Hyperplasia on medication with no current urinary complaints. An essential tremor affecting his hands is not currently treated with medication. Reports that pulmonology is unable to find a recent for his intermittent shortness of breath. Reports that he had tried all different type of inhalers without resolution. He is on an annual scheduled and as needed with [facility] pulmonology When he was diagnosed with ulcerative colitis, he also developed pancreatitis due to the medication that they placed him on. He was taken off this medication 6 months ago GERD: reports that he gets heartburn if he does not take the omeprazole he is currently on omeprazole 40 mg Anxiety: Reports that he sees Michelle Kingston; this is who prescribes his mental health medications, he reports that his anxiety was connected to his colitis and the fear of going out in public and needing to use the bathroom all the time. [facility] [place], he cannot remember the name of the provider that he is seeing, reports that he has not seen him in a while, but saw his nurse practitioner earlier this year and was told that his numbers area good Central Tremor: in both hand, reports that [place] [facility] [place] did [place] want to prescribed any medication reports that his feet feels weird and hard to describe, there is no tingling, sometimes times they get warm, reports that he still has +sensation, and his balance is not affected [facility] Medical History (Updated 04/10/25 @ 22:40 by TEODORO Stokes) COVID-19 vaccine series completed Hx of pancreatitis Polyneuropathy GERD (gastroesophageal reflux disease) Ulcerative colitis BPH (benign prostatic hyperplasia) Screening for colon cancer Cervical cancer screening Sleep apnea Atrial fibrillation Asthma Depression Hyperlipidemia Surgical History Hx of inguinal hernia repair Hx of colonoscopy History of endoscopy History of lumbar laminectomy Family History Father Past heart attack Mother Past heart attack Family/Other Colon cancer Social History Housing: House Are you a primary residential care facility manager to a significant other at home: No Do you presently have visiting nurse or other home services: No Alcohol intake: never Patient Tobacco Use Status: Former Tobacco user Tobacco use type: Cigarette e-Cigarette/Vaping Use: Never Used Second Hand Smoke Exposure: No service: No Current occupational status: retired Cognitive needs: No Hearing needs: No Vision needs: Yes (Glasses) Questionnaire PHQ-9 Over the last 2 weeks, how often have you been bothered by any of the following problems? 1. Little interest or pleasure in doing things: not at all 2. Feeling down, depressed, or hopeless: not at all 3. Trouble falling or staying asleep, or sleeping too much: several days 4. Feeling tired or having little energy: several days 5. Poor appetite or overeating: not at all 6. Feeling bad about yourself - or that you are a failure or have let yourself or your family down: not at all 7. Trouble concentrating on things, such as reading the newspaper or watching television: not at all 8. Moving or speaking so slowly that other people could have noticed. Or the opposite - being so fidgety or restless that you have been moving around a lot more than usual: not at all 9. Thoughts that you would be better off or of hurting yourself in some way: not at all Total score: 2 Depression Screening Interpretation: Negative Depression Screening Done: Yes 17764 - PHQ-9 Billing: Yes Source: Developed by Drs. Matthew Andrea, Lindsey Crowell, Jorge Luis Mcleod and colleagues, with an educational rasheeda from [employer]. Thrive Questionnaire Date Thrive assessed: 03/24/25 I am a: Patient What is your living situation today?: I have a steady place to live Within the past 12 months, did the food you bought not last and you didn't have the money to get more?: Never true Within the past 12 months, did you worry whether your food would run out before you got money to buy more?: Never true Do you have trouble paying for medicines?: No Do you have trouble getting transportation to medical appointments?: No Do you have trouble paying your heating and electricity bill?: No Do you have trouble taking care of your child, family member or friend?: No Do you have trouble with day-to-day activities such as bathing, preparing meals, shopping, managing finances, etc.?: No Are you currently unemployed and looking for a job?: No Are you interested in more education?: No Please select the resources that you would like help with: None Currently or been in a relationship where the following occur: No concerns reported THRIVE Score: 0 AUDIT C Alcohol Use Questionnaire (AUDIT-C) 1. How often do you have a drink containing alcohol?: Monthly or less 2. How many drinks containing alcohol do you have on a typical day when you are drinking?: 1 or 2 3. How often do you have six or more drinks on one occasion?: Never Total Score: 1 Score Reviewed/Action Taken: No ALFA-7 AMB Questionnaire ALFA-7 Date ALFA - 7 assessed: 03/24/25 Feeling nervous, anxious, or on edge: 0 = Not at all Not being able to stop or control worryin = Not at all Worrying too much about different things: 0 = Not at all Trouble relaxin = Not at all Being so restless that it is hard to sit still: 0 = Not at all Becoming easily annoyed or irritable: 0 = Not at all Feeling afraid as if something awful might happen: 0 = Not at all Total ALFA-7 score (0-4 normal; 5-9 mild; 10-14 moderate; 15-21 severe): 0 Source: Developed by Drs. Matthew Andrea, Lindsey Crowell, Jorge Luis Mcleod and colleagues, with an educational rasheeda from [employer]. ALFA-7 Assessment Billing ALFA-7 Assessment Tool: ALFA-7 Assessment 20460 Review of Systems Const Denies headache(s) Eyes Denies loss of vision ENT Denies vertigo, Denies dizziness, Denies headache(s), Reports nasal congestion (On and off), Reports post nasal drip (On and off) and Denies sore throat Card Denies chest pain, Denies leg edema, Denies lightheadedness and Reports dyspnea (Occasional intermittent-associated with postnasal drip) Resp Reports cough (Persistent), Denies hemoptysis, Reports dyspnea (Occasional intermittent-associated with postnasal drip) and Denies wheezing GI Denies abdominal pain, Denies melena, Denies constipation, Reports heartburn (If he does not take omeprazole), Denies diarrhea and Denies vomiting Denies dysuria, Denies urinary frequency and Denies urinary urgency Musc Denies arthralgias, Denies joint swelling, Denies numbness and Denies tingling Skin/Breast Denies lesions and Denies rash Neuro Denies Abnormal speech present, Denies behavioral changes, Denies vertigo, Denies dizziness, Denies headache(s), Denies loss of vision, Denies memory loss, Denies numbness, Denies tingling, Reports paresthesias (Both feet) and Reports tremor(s) (Central tremors in both hands) Psych Reports anxiety, Denies behavioral changes, Denies depression, Denies memory loss and Denies panic attacks Pako/Lymph Denies easy bleeding and Denies easy bruising Aller/Immun Denies wheezing Physical exam (Primary Care) Vital Signs: Last Vital Signs Temp 98.5 F 03/24/25 14:37 Pulse 70 03/24/25 14:37 Resp 18 03/24/25 14:37 BP 132/66 03/24/25 14:37 Pulse Ox 97 03/24/25 14:37 Oxygen Delivery Method Room Air 03/24/25 14:37 BMI result Body Mass Index 27.2 Tobacco/Smoking Status: Tobacco use Status Tobacco use date assessed 03/24/25 03/24/25 14:57 Patient Tobacco Use Status Former Tobacco user 03/24/25 14:57 Tobacco use type Cigarette 03/24/25 14:57 e-Cigarette/Vaping Use Never Used 03/24/25 14:57 PHQ-9: PHQ-9 Score PHQ-9: Total score 2 04/06/25 15:27 Depression Screening Interpretation: Negative Thrive Assessment: Date of Thrive Assessment Date Thrive assessed 03/24/25 03/24/25 14:57 Currently or been in a relationship where the following occur: No concerns reported Const General: healthy appearing, no acute distress, alert and awake Nutritional Appearance: well nourished Orientation/consciousness: oriented to person, oriented to place and oriented to time HENMT Ears: TM's normal bilaterally General nose exam: Normal nasal mucous membranes and turbinates present Eyes Conjunctivae: conjunctivae normal Sclerae: sclerae normal Pupils: Equal, round and reactive pupils present Neck Neck: Yes no lymphadenopathy and Yes no JVD Thyroid: Thyroid normal Carotids: no bruits Resp Effort & Inspection: normal respiratory effort and not tachypneic Auscultation: no crackles, no rales, no rhonchi and no wheezes Cardio Rate: regular rate Rhythm: regular rhythm Heart sounds: no murmurs and normal S1 and S2 GI Palpation (GI): Soft to palpation, nontender, no hepatomegaly and no splenomegaly Auscultation: normal bowel sounds General: Yes no CVA tenderness Back/Spine/Pelvis Back: no CVA tenderness Skin General skin exam: no rashes or lesions noted and dry skin Neuro General: oriented to person, oriented to place and oriented to time Cranial nerves: Yes Equal, round and reactive pupils present Speech: No Abnormal speech present Gait exam (Neuro): Normal gait present Motor exam (neuro): Tremors during motor activity present Sensory Exam: Upper extremity sensory exam abnormal (Both hands) Extrem Right upper extremity: full ROM Left upper extremity: full ROM Right lower extremity: full ROM; no edema Left lower extremity: full ROM; no edema Psych Mental Status: mental status grossly normal Speech and movement: Normal speech and movement present Affect: normal affect Attitude: cooperative Thought process: Normal thought process present Coding Level of Care Code Est Pt Level 4 (03861) Diagnoses Longstanding persistent atrial fibrillation I48.11 Atrial fibrillation type: longstanding persistent Hyperlipidemia, unspecified hyperlipidemia type E78.5 Hyperlipidemia type: unspecified Benign prostatic hyperplasia without lower urinary tract symptoms N40.0 Lower urinary tract symptom presence: symptoms absent Neuropathy G62.9 Asthma, unspecified asthma severity, unspecified whether complicated, unspecified whether persistent J45.909 Asthma severity: unspecified severity Asthma persistence: unspecified Asthma complication type: unspecified 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 Ulcerative colitis location: ulcerative rectosigmoiditis Digestive disease complication type: unspecified complication Anxiety F41.9 Allergic rhinitis, unspecified seasonality, unspecified trigger J30.9 Allergic rhinitis trigger: unspecified Allergic rhinitis seasonality: unspecified Additional Codes ALFA-7 Assessment Billing - ALFA-7 Assessment Tool: ALFA-7 Assessment 22121 ([id number]) PHQ-9 - 73806 - PHQ-9 Billing: Yes ([id number]) Time Spent (min) 44 Assessment & Plan Assessment & Plan (1) Atrial fibrillation: Code(s): I48.91 - Unspecified atrial fibrillation Category: Medical Qualifiers: Atrial fibrillation type: longstanding persistent Qualified Code(s): I48.11 - Longstanding persistent atrial fibrillation (2) Hyperlipidemia: Code(s): E78.5 - Hyperlipidemia, unspecified Category: Medical Qualifiers: Hyperlipidemia type: unspecified Qualified Code(s): E78.5 - Hyperlipidemia, unspecified (3) Benign prostate hyperplasia: Code(s): N40.0 - Benign prostatic hyperplasia without lower urinary tract symptoms Category: Medical Qualifiers: Lower urinary tract symptom presence: symptoms absent Qualified Code(s): N40.0 - Benign prostatic hyperplasia without lower urinary tract symptoms (4) Neuropathy: Comment: 20 min reviewing chart eval pt and documenting; referred Code(s): G62.9 - Polyneuropathy, unspecified Category: Medical (5) Asthma: Code(s): J45.909 - Unspecified asthma, uncomplicated Category: Medical Qualifiers: Asthma severity: unspecified severity Asthma persistence: unspecified Asthma complication type: unspecified Qualified Code(s): J45.909 - Unspecified asthma, uncomplicated (6) Ulcerative colitis: Comment: dx ~ age 26 Code(s): K51.90 - Ulcerative colitis, unspecified, without complications Category: Medical Qualifiers: Ulcerative colitis location: ulcerative rectosigmoiditis Digestive disease complication type: unspecified complication Qualified Code(s): K51.319 - Ulcerative (chronic) rectosigmoiditis with unspecified complications (7) Anxiety: Code(s): F41.9 - Anxiety disorder, unspecified Category: Medical (8) Allergic rhinitis: Code(s): J30.9 - Allergic rhinitis, unspecified Category: Medical Qualifiers: Allergic rhinitis trigger: unspecified Allergic rhinitis seasonality: unspecified Qualified Code(s): J30.9 - Allergic rhinitis, unspecified Plan I outlined the rationale for continuing flecainide while evaluating the potential for tapering under stable conditions. We discussed the importance of routine sanitation truck driver follow-up for arrhythmia management. I emphasized the ongoing use of asthma inhalers and reviewed the minimal use of the nebulizer to manage side effects. Ceqs-hip-xphjyej antihistamine use was suggested for symptom control. Anxiety management through current medication, including Wellbutrin, was confirmed with regular mental health provider checks for monitoring. We reviewed the patient's neuropathy status, deciding against additional treatment as symptoms remain stable. Routine lab tests for health maintenance, including lipid panels, were planned to assess and manage cardiovascular risk factors effectively. I reinforced the continuation of health-promoting activities like gardening. Orders: Orders Comprehensive [place] [facility]. Panel Fast 03/24/25 J45.909 - Unspecified asthma, uncomplicated, I48.91 - Unspecified atrial fibrillation, N40.0 - Benign prostatic hyperplasia without lower urinary tract symptoms, Z00.00 - Encounter for general adult medical examination without abnormal findings, G62.9 - Polyneuropathy, unspecified, E78.5 - Hyperlipidemia, unspecified Lipid Panel 03/24/25 J45.909 - Unspecified asthma, uncomplicated, I48.91 - Unspecified atrial fibrillation, N40.0 - Benign prostatic hyperplasia without lower urinary tract symptoms, Z00.00 - Encounter for general adult medical examination without abnormal findings, G62.9 - Polyneuropathy, unspecified, E78.5 - Hyperlipidemia, unspecified Vitamin D 25-OH Total 03/24/25 J45.909 - Unspecified asthma, uncomplicated, I48.91 - Unspecified atrial fibrillation, N40.0 - Benign prostatic hyperplasia without lower urinary tract symptoms, Z00.00 - Encounter for general adult medical examination without abnormal findings, G62.9 - Polyneuropathy, unspecified, E78.5 - Hyperlipidemia, unspecified Complete Blood Count Auto Diff 03/24/25 J45.909 - Unspecified asthma, uncomplicated, I48.91 - Unspecified atrial fibrillation, N40.0 - Benign prostatic hyperplasia without lower urinary tract symptoms, Z00.00 - Encounter for general adult medical examination without abnormal findings, G62.9 - Polyneuropathy, unspecified, E78.5 - Hyperlipidemia, unspecified UA CC w/rflx Micro + Cult 03/24/25 J45.909 - Unspecified asthma, uncomplicated, I48.91 - Unspecified atrial fibrillation, N40.0 - Benign prostatic hyperplasia without lower urinary tract symptoms, Z00.00 - Encounter for general adult medical examination without abnormal findings, G62.9 - Polyneuropathy, unspecified, E78.5 - Hyperlipidemia, unspecified TSH reflex Free T4 03/24/25 J45.909 - Unspecified asthma, uncomplicated, I48.91 - Unspecified atrial fibrillation, N40.0 - Benign prostatic hyperplasia without lower urinary tract symptoms, Z00.00 - Encounter for general adult medical examination without abnormal findings, G62.9 - Polyneuropathy, unspecified, E78.5 - Hyperlipidemia, unspecified PSA,Total (Free>4and<10) 03/24/25 N40.0 - Benign prostatic hyperplasia without lower urinary tract symptoms
--- OUTSIDE RECORDS SUMMARY | 2025-03-24 16:36 | XMS_ITS | Patient Health Record ---
Author Organization [facility] Address [address] [place] [id number] Care Team Providers Care Pharmaceutical Sales Representative Name Role Phone Alfonso Sims MD Primary Care Provider Matthew Meredith Unavailable [phone] Allergies No Known Allergies Reason For Referral No Information Medications Medication SIG (Take, Route, Frequency, Duration) Notes Start Date End Date Status buPROPion HCl ER (XL) 300 MG Oral for 30 Active Venlafaxine HCl ER 75 MG TAKE ONE CAP BY MOUTH EVERY MORNING Oral for 30 Active Tamsulosin HCl 0.4 MG Oral for 90 Active Finasteride Active Mirtazapine Active hydrOXYzine HCl 10 MG TAKE 1 TABLET BY M OUTH UP TO THREE TIMES DAILY NEEDED FOR ANXIETY Oral for 90 Active Omeprazole 40 MG TAKE 1 CAPSULE BY MO UTH EVERY DAY Oral for 90 Active Pravastatin Sodium 80 MG TAKE 1 TABLET B Y MOUTH EVERY DAY Oral for 90 Active Xarelto 20 MG TAKE 1 TABLET BY GRIS TH WITH FOOD IN THE EVENING Oral for 90 Active ProAir HFA Active Qvar RediHaler 80 MCG/ACT INHALE 1 PUFF BY MOUTH TWICE A DAY Inhalation for 30 Active Atenolol 25 MG Oral for 90 Act juan Immunizations Vaccine Route Administration Date Status Comme nts Influenza Unknown 05/11/2021 Administered Social History Tobacco Use: Social History Observation Description Date Details (start date - stop date) Never Smoker NA - NA Tobacco Use/Smoking Question Answer Notes Patient is a nonsmoker Alcohol Screen Question Answer Notes Did you have a drink containing alcohol in the p ast year? No Points 0 Interpretation Negative Section Notes: Nonsmoker; no sig. alcohol Problems Problem Type SNOMED Code ICD Code Onset Dates Problem Status W/U Status Risk Notes Problem 101522810 Encounter for screening for malignant neoplasm of colon (Z12.11) Active confirmed Problem 411029438 History of colon polyps (Z86.010) Active confirmed Problem History of polyp of colon (situation) (341190954) Hx of colonic polyps (Z86.010) Active confirmed Problem 83772413 Ulcerative colitis without complications, unspecified location (K51.90) Active confirmed Problem Ulcerative colitis (97847992) Ulcerative colitis (K51.90) Active confirmed Problem Diverticulosis of colon (126390856) Diverticulosis of colon (K57.30) Active confirmed Plan Of Treatment Future Test Test Name Order Date COLONOSCOPY 05/11/2021 Insurance Providers Payer Name Payer Address Payer Phone Subscriber Number Group Number Insured Name Patient Relationship to Insured Coverage Start Date Coverage End Date MEDICARE OF [place] [address] [place] [address] [id number] MANDY FLOWERS Self - patient is the insured [facility] [address] [place] [phone] [id number] MANDY FLOWERS Self - patient is the insured Medical (General) History Medical History History ICD Code AFIB ASTHMA Hx of kidney stones Hypertension History of ulcerative coliti s since age of 22--treated initially with prednisone; started Azathioprine about 20yrs ago but had to stop in approx 2018 due to pancreatitis--since then fine without meds--originally saw Dr. Monsivais--last colonoscopy in approx [phone] GERD--EGD's with Dr. Monsivais--had esophagi tis Denies [place],DM,CVA,renal disease BPH Anxiety Hyperlipidemia Surgical History Surgery Date(Month/Year) Back surgery Left inguiinal hernia repair
== END 2025-03-24 15:35 | disposition home or self-care (01) ==
LOC: HO.HMCH 14:27
PROVIDERS: PCP Internal Medicine
DX: I48.11 Longstanding persistent atrial fibrillation (principal); K51.319 Ulcerative (chronic) rectosigmoiditis with unspecified complications; E78.5 Hyperlipidemia, unspecified; N40.0 Benign prostatic hyperplasia without lower urinary tract symptoms; G62.9 Polyneuropathy, unspecified; J45.909 Unspecified asthma, uncomplicated; F41.9 Anxiety disorder, unspecified; J30.9 Allergic rhinitis, unspecified

== ENCOUNTER → 2025-03-24 14:27 | Outpatient (BNVA) | payer MEDICARE, OTHER, SELFPAY | PROVIDERS: PCP Internal Medicine | DX: I48.11 Longstanding persistent atrial fibrillation (principal); E78.5 Hyperlipidemia, unspecified; G62.9 Polyneuropathy, unspecified; J45.909 Unspecified asthma, uncomplicated; K51.319 Ulcerative (chronic) rectosigmoiditis with unspecified complications; F41.9 Anxiety disorder, unspecified | CPT/HCPCS: 96127; 99212 ==

== ENCOUNTER 2025-04-07 10:25 | Outpatient (REF) | payer MEDICARE, OTHER, SELFPAY ==
[2025-04-07 10:39] LABS: MANUAL DIFF FLAG NO
[2025-04-07 11:23] LABS: Basophils Percent Auto 0.5 % (0-2); Eosinophils Absolute Auto 0.2 X10*3/uL (0.0-0.4); Eosinophils Percent Auto 2.1 % (0-4); Hematocrit 45.9 % (42.0-52.0); Hemoglobin 15.1 g/dl (14.0-18.0); Imm Gran Abs Auto 0.03 X10*3/uL (0.00-0.03); Imm Gran Pct Auto 0.4 % (0.0-0.4); Lymphocytes Absolute Auto 2.3 X10*3/uL (1.2-4.9); Lymphocytes Percent Auto 29.4 % (20-40); Mean Corpuscular HGB Conc 32.9 g/dl (31.0-36.0); Mean Corpuscular Hemoglobin 29.9 pg (27.0-33.0); Mean Corpuscular Volume 90.9 fL (80.0-98.0); Mean Platelet Volume 9.3 fL (9.4-12.4); Monocytes Absolute Auto 0.4 X10*3/uL (0.1-1.2); Monocytes Percent Auto 5.3 % (2-11); Neutrophils Absolute Auto 4.9 x10*3/uL (2.0-8.3); Neutrophils Percent Auto 62.3 % (45-73); Platelet Count 351 X10*3/uL (160-400); Red Blood Count 5.05 X10*6/uL (4.60-5.80); Red Cell Distribution Width 14.6 % (11.0-16.0); White Blood Count 7.8 X10*3/uL (4.8-10.8)
[2025-04-07 11:56] LABS: Appearance Urine Clear; Color Urine Yellow; Glucose Urine UA Negative (Negative); Leukocyte Esterase Urine Negative (Negative); Nitrite Urine Negative (Negative); Specific Gravity - Urine 1.015 (1.005-1.025); Urine Blood Negative (Negative); Urine Ketones Negative (Negative); Urine Protein Negative (Neg-Trace)
[2025-04-07 12:06] LABS: Alanine Aminotransferase 19 U/L (0-40); Albumin Level 4.1 g/dL (3.5-5.0); Alkaline Phosphatase 98 U/L (39-117); Anion Gap 11 (12-20); Aspartate Amino Transferase 23 U/L (5-37); Bilirubin Total 0.5 mg/dL (0.0-1.0); Blood Urea Nitrogen 22 mg/dL (9-16); Calcium 9.6 mg/dL (8.4-10.2); Carbon Dioxide 27 mmol/L (22-29); Chloride 107 mmol/L (96-108); Cholesterol 208 mg/dL (<200); Estimated Glomerular Filt Rate 57; Glucose Fasting 100 mg/dL (60-99); HDL Cholesterol 59 mg/dL (>40); LDL Cholesterol Calculated 118 mg/dL (<100); Potassium 4.4 mmol/L (3.3-5.1); Sodium 141 mmol/L (135-145); Total Protein 6.9 g/dL (6.5-8.0); Triglycerides 156 mg/dL (<150)
--- OUTSIDE RECORDS SUMMARY | 2025-04-07 12:10 | XMS_ITS | Patient Health Record ---
Author Organization [facility] Address [address] [place] [id number] Care Team Providers Care Director Of Volunteer Services Name Role Phone Alfonso Sims MD Primary Care Provider Matthew Meredith Unavailable [phone] Allergies No Known Allergies Reason For Referral [...] Problem Status W/U Status Risk Notes Problem 229301533 Encounter for screening for malignant neoplasm of colon (Z12.11) Active confirmed Problem 704966691 History of colon polyps (Z86.010) Active confirmed Problem Hx of colonic polyps (Z86.010) Active confirmed Problem 70519747 Ulcerative colitis without complications, unspecified location (K51.90) Active confirmed Problem Ulcerative colitis (14283640) Ulcerative colitis (K51.90) Active confirmed Problem Diverticulosis of colon (450141458) Diverticulosis of colon (K57.30) Active confirmed Plan Of Treatment Future Test Test Name Order Date COLONOSCOPY 05/11/2021 Insurance Providers Payer Name Payer Address Payer Phone Subscriber Number Group Number Insured Name Patient Relationship to Insured Coverage Start Date Coverage End Date [place]ARE OF [place] [address] [place] [address] [id number] MANDY FLOWERS Self - patient is the insured [facility] [address] [place] [phone] [id number] MANDY FLOWERS Self - patient is the insured Medical (General) History Medical History History ICD Code AFIB ASTHMA Hx of kidney stones Hypertension History of ulcerative coliti s since age of 22--treated initially with prednisone; started Azathioprine about 20yrs ago but had to stop in approx 2018 due to pancreatitis--since then fine without meds--originally saw Dr. Monsivais--last colonoscopy in approx [phone] GERD--EGD's with Dr. Monsivais--had esophagi tis Denies [place],DM,CVA,renal disease BPH Anxiety Hyperlipidemia Surgical History Surgery Date(Month/Year) Back surgery Left inguiinal hernia repair
[2025-04-07 12:14] LABS: PSA,Total (Free>4and<10) 1.32 ng/mL (0.00-4.00)
[2025-04-07 12:15] LABS: TSH reflex Free T4 0.95 uIU/mL (0.32-4.0); Vitamin D 25-OH Total 40.8 ng/mL (>30)
== END 2025-04-07 10:26 | disposition home or self-care (01) ==
LOC: HO.LAB 10:25
DX: J45.909 Unspecified asthma, uncomplicated (principal); I48.91 Unspecified atrial fibrillation; N40.0 Benign prostatic hyperplasia without lower urinary tract symptoms; Z00.00 Encounter for general adult medical examination without abnormal findings; G62.9 Polyneuropathy, unspecified; E78.5 Hyperlipidemia, unspecified
CPT/HCPCS: 36415; 80053; 80061; 81003; 82306; 84153; 84443; 85025

== ENCOUNTER 2025-07-02 14:21 | Outpatient (AMB) | payer MEDICARE, OTHER, SELFPAY ==
--- OUTSIDE RECORDS SUMMARY | 2025-07-02 14:25 | XMS_ITS | Clinical Summary ---
Author Organization [facility] Address [address] [place] [id number] Phone Care Team Providers Care Dot Etcher Apprentice Name Role Phone Alfonso Sims MD Primary Care Provider [phone] Medications acetaminophen (TYLENOL) 325 mg tablet Take 650 mg by mouth every 6 (six) hours as needed for mild pain. Active albuterol 2.5 mg /3 mL (0.083 %) nebulizer solution Take 2.5 mg by nebulization every 6 (six) hours as needed. Active albuterol 90 mcg/actuation inhaler Inhale 2 puffs into the lungs every 6 (six) hours as needed for wheezing. Active atenolol (TENORMIN) 25 MG tabletIndication s:1/2 tablet daily Take 25 mg by mouth daily. Indications: 1/2 tablet daily Active finasteride (PROSCAR) 5 mg tablet Take 5 mg by mouth daily. Active melatonin 5 mg Tab Take by mouth nightly at bedtime. Active mirtazapine (REMERON) 15 MG tablet Take 15 mg by mouth nightly at bedtime. Active therapeutic multivitamin tablet Take 1 tablet by mouth daily. Active pravastatin (PRAVACHOL) 80 MG tablet Take 80 mg by mouth daily. Active tamsulosin (FLOMAX) 0.4 mg Cap Take 0.4 mg by mouth daily. Active venlafaxine (EFFEXOR) 37.5 MG tablet Take 37.5 mg by mouth 2 (two) times a day. Active venlafaxine (EFFEXOR) 75 MG tablet Take 75 mg by mouth 2 (two) times a day. Active Active Problems No known active problems Social History Tobacco Use Types Packs/Day Years Used Date Smoking Tobacco: Never Assessed Education Answer Date Recorded Are you interested in more education? Not on douglas e 02/16/2023 Are you concerned about learning? Not on file 02/16/2023 No 02/16/2023 No 02/16/2023 Digital Access Answer Date Recorded No 03/10/2023 No 03/10/2023 No 03/10/2023 Reliable internet access at home? Not on file 03/10/2023 Device with a working camera? Not on file Sex and Gender Information Value Date Recorded Sex Assigned at Not on file Legal Sex Male 5:30 PM EST Gender Identity Not on file Sexual Orientation Not on file Last Filed Vital Signs Vital Sign Reading Time Taken Comments Blood Pressure 108/60 09/22/2019 1:34 PM EST Pulse 37 09/22/2019 1:34 PM EST 37-56 on pulse ox. Temperature - - Respiratory Rate - - Oxygen Saturation 97% 09/22/2019 1:34 PM EST Inhaled Oxygen Concentration - - Weight - - Height - - Body Mass Index - - Plan of Treatment Health Maintenance Due Date Last Done Comments LIPID PANEL 1946 DEPRESSION SCREENING 1958 SMOKING Hx and SMOKELESS TOBACCO SCREENING 1959 HEPATITIS C SCREENING 1964 PNEUMOCOCCAL VACCINES (50+ years) (1 of 1 - PCV) 1996 ZOSTER VACCINES (1 of 2) 1996 RSV VACCINE (1 - 1-dose 75+ series) 2021 INFLUENZA VACCINE (#1) 2025 , 08/17/2020, 07/31/2019, Additional history exists COVID-19 VACCINE ( season) 2025 01/12/2021, 12/22/2020 Adult Td,Tdap Booster 02/27/2027 02/27/2017 HEPATITIS A VACCINES Aged Out No long er eligible based on patient's age to complete this topic HIB VACCINES Aged Out No longer eligi ble based on patient's age to complete this topic MENINGOCOCCAL VACCINES (ACWY) Aged Out No longer eligible based on patient's age to complete this topic MENINGOCOCCAL VACCINES (B) Aged Out N o longer eligible based on patient's age to complete this topic Medical Devices Not on file Insurance MEDICARE PART A & B [facility] Address: [address] [address] MEDICARE PART A & B MEDICARE PART A & B O MEDICARE PART A & B O MEDICARE PART A & B [facility] HMO MEDICARE PART A & B Member Subscriber Plan / Payer ( fective 2011-) Name:Rodrigo Duke Member ID:[id number] Relation to Subscriber:Self Name:Rodrigo Duke Subscriber ID:[id number] Payer ID:[id number] Group ID:Not on file Type:Medicare Address: [email or web address] [address] MEDICARE PART A & B O MEDICARE PART A & B Member Subscriber Plan / Payer (Ef fective 2011-) Name:Rodrigo Duke Member ID:[id number] Relation to Subscriber:Self Name:Rodrigo Duke Subscriber ID:[id number] Payer ID:[id number] Group ID:Not on file Type:Medicare Address: [email or web address] [address] [facility] Address: [address] [address] MEDICARE PART A & B O [facility] Address: [address] [address] Care Teams Dot Etcher Apprentice Relationship Specialty Start Date End Date Alfonso Sims MD [address] [place] [address] [place] [address] PCP - General 10/17/17 Additional Source Comments The information contained in this document represents components of the legal health record. It is not the complete legal health record.[facility]
--- NOTE | 2025-07-02 14:30 | A.OFFPC_ITS ---
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 Accompanied by: Self / Same As Patient Allergies No Known Allergies (NKA) Allergy (Verified 07/02/25 14:43) Medication List - Last Reconciled 07/02/25 by TEODORO Stokes albuterol sulfate 90 mcg/actuation 2 puffs PO QID PRN atenolol 12.5 mg (1/2 x 25 mg) PO BEDTIME beclomethasone dipropionate 80 mcg/actuation 1 inh inhalation BID bupropion HCl XL 150 mg PO DAILY finasteride 5 mg PO BEDTIME flecainide 75 mg PO BID fluticasone propion-salmeterol 250-50 mcg/dose (Wixela Inhub) 1 ea inhalation BID hydroxyzine HCl 10 mg PO BID PRN mirtazapine 30 mg PO BEDTIME omeprazole 40 mg PO DAILY pravastatin 80 mg PO BEDTIME rivaroxaban 20 mg PO DAILY tamsulosin 0.4 mg PO QAM venlafaxine ER 75 mg PO QAM venlafaxine ER 37.5 mg PO QAM Tobacco use date assessed: 07/02/25 Fall risk assessment: No Falls in past year Last assessed Fall Risk: 07/02/25 Dental Screening Dental Screen Date: 07/02/25 Did you have a dental visit in the last 12 months?: Yes Did you have a dental problem in the last 6 months where you did not have access to dental care?: No Was dental information given to patient?: Patient has dentist HPI 3 month f/u HPI Details The patient is a 80-year-old male presenting with concerns about hyperlipidemia. The patient expressed dissatisfaction with recent blood work results, noting an increase in triglycerides from 73 mg/dL to 156 mg/dL, which is above the desired level of 150 mg/dL. The patient has been on pravastatin for cholesterol management, which is a low-density statin with fewer side effects, but the patient is concerned about the recent increase in cholesterol levels despite medication. The patient also has a history of atrial fibrillation, which increases cardiovascular risk, necessitating careful management of cholesterol levels. The patient is advised to reduce intake of processed foods, sugary items, fried foods, egg yolks, red meats, and shellfish to manage cholesterol levels effectively. The patient reported a shoulder injury sustained two months ago while walking a dog, resulting in limited arm mobility for three months. An X-ray was performed, revealing no significant damage, but the patient experienced inflammation and soreness, which has since improved. [facility] Medical History COVID-19 vaccine series completed Hx of pancreatitis Polyneuropathy GERD (gastroesophageal reflux disease) Ulcerative colitis BPH (benign prostatic hyperplasia) Screening for colon cancer Cervical cancer screening Sleep apnea Atrial fibrillation Asthma Depression Hyperlipidemia Surgical History Hx of inguinal hernia repair Hx of colonoscopy History of endoscopy History of lumbar laminectomy Family History Father Past heart attack Mother Past heart attack Family/Other Colon cancer Social History Housing: House Are you a primary child care supervisor to a significant other at home: No Do you presently have visiting nurse or other home services: No Alcohol intake: never Patient Tobacco Use Status: Former Tobacco user Tobacco use type: Cigarette e-Cigarette/Vaping Use: Never Used Second Hand Smoke Exposure: No service: No Current occupational status: retired Cognitive needs: No Hearing needs: No Vision needs: Yes (Glasses) Questionnaire Thrive Questionnaire Date Thrive assessed: 03/24/25 I am a: Patient What is your living situation today?: I have a steady place to live Within the past 12 months, did the food you bought not last and you didn't have the money to get more?: Never true Within the past 12 months, did you worry whether your food would run out before you got money to buy more?: Never true Do you have trouble paying for medicines?: No Do you have trouble getting transportation to medical appointments?: No Do you have trouble paying your heating and electricity bill?: No Do you have trouble taking care of your child, family member or friend?: No Do you have trouble with day-to-day activities such as bathing, preparing meals, shopping, managing finances, etc.?: No Are you currently unemployed and looking for a job?: No Are you interested in more education?: No Please select the resources that you would like help with: None Currently or been in a relationship where the following occur: No concerns reported THRIVE Score: 0 ALFA-7 AMB Questionnaire ALFA-7 Date ALFA - 7 assessed: 03/24/25 Source: Developed by Drs. Matthew Andrea, Lindsey Crowell, Jorge Luis Mcleod and colleagues, with an educational rasheeda from [employer] Review of Systems Const Denies body aches, Denies chills, Denies fever(s), Denies headache(s) and Denies poor appetite Eyes Reports no additional complaints ENT Denies dysphagia, Denies dizziness, Denies headache(s) and Denies odynophagia Card Denies chest pain, Denies syncope, Denies edema, Denies irregular heart rhythm, Denies lightheadedness and Reports dyspnea (intermittent-chronic) Resp Denies cough and Reports dyspnea (intermittent-chronic) GI Denies abdominal pain, Denies constipation, Denies dysphagia, Reports heartburn (if he forgets to take his PPI), Denies diarrhea, Denies nausea, Denies odynophagia and Denies vomiting Reports no additional complaints Musc Reports arthralgias (right shoulder) Skin/Breast Reports system reviewed and no additional complaints, except as documented Neuro Denies dizziness, Denies syncope, Denies headache(s) and Reports paresthesias (bilateral lower extremities) Psych Reports anxiety Physical exam (Primary Care) Vital Signs: Last Vital Signs Temp 97.3 F 07/02/25 14:31 Pulse 74 07/02/25 14:31 Resp 18 07/02/25 14:31 BP 132/76 07/02/25 14:31 Pulse Ox 95 07/02/25 14:31 Oxygen Delivery Method Room Air 07/02/25 14:31 BMI result Body Mass Index 27.4 Tobacco/Smoking Status: Tobacco use Status Tobacco use date assessed 07/02/25 07/02/25 14:32 Patient Tobacco Use Status Former Tobacco user 07/02/25 14:32 Tobacco use type Cigarette 07/02/25 14:32 e-Cigarette/Vaping Use Never Used 07/02/25 14:32 Thrive Assessment: Date of Thrive Assessment Date Thrive assessed 03/24/25 07/02/25 14:32 Currently or been in a relationship where the following occur: No concerns reported Const General: cooperative, healthy appearing, comfortable and no acute distress Orientation/consciousness: patient oriented x3 [facility] Head: Yes normocephalic Ears: hearing grossly normal bilaterally General nose exam: Normal external nose present Eyes General: appearance normal, both eyes and all related structures Conjunctivae: conjunctivae normal Neck Neck: Yes full ROM and Yes no lymphadenopathy Resp Effort & Inspection: normal respiratory effort Auscultation: clear to auscultation bilaterally, no crackles, no rales, no rhonchi and no wheezes Cardio Rate: regular rate Rhythm: regular rhythm Heart sounds: S1 normal heart sound present and S2 normal heart sound present GI Palpation (GI): Soft to palpation, nontender and No hepatosplenomegaly present Auscultation: normal bowel sounds General: Yes no CVA tenderness Back/Spine/Pelvis Back: no CVA tenderness Skin General skin exam: no rashes or lesions noted Neuro General: patient oriented x3 Gait exam (Neuro): Normal gait present Extrem General: Yes normal to inspection, Yes full ROM and No edema Right upper extremity: shoulder/upper arm Details: no tenderness and no swelling Psych Affect: normal affect Attitude: cooperative Insight: Good insight present (Psych) Judgement: Good judgement present (Psych) Results Reviewed Results Reviewed: Laboratory Tests 04/07/25 04/07/25 10:32 10:37 WBC 7.8 RBC 5.05 Hgb 15.1 Hct 45.9 MCV 90.9 MCH 29.9 MCHC 32.9 RDW 14.6 Plt Count 351 Sodium 141 Potassium 4.4 Chloride 107 Carbon Dioxide 27 Anion Gap 11 L BUN 22 H Creatinine 1.23 Estimated GFR 57 Fasting Glucose 100 H Calcium 9.6 Total Bilirubin 0.5 AST 23 ALT 19 Alkaline Phosphatase 98 Total Protein 6.9 Albumin 4.1 Triglycerides 156 H Cholesterol 208 H LDL Cholesterol, Calc 118 H HDL Cholesterol 59 Total PSA 1.32 25-OH Vitamin D Total 40.8 TSH 0.95 Urine Color Yellow Urine Appearance Clear Urine pH 6.0 Ur Specific [place] 1.015 Urine Protein Negative Urine Glucose (UA) Negative Urine Ketones Negative Urine Blood Negative Urine Nitrite Negative Ur Leukocyte Esterase Negative Coding Level of Care Code Est Pt Level 4 (07209) Diagnoses Longstanding persistent atrial fibrillation I48.11 Atrial fibrillation type: longstanding persistent Hyperlipidemia, unspecified hyperlipidemia type E78.5 Hyperlipidemia type: unspecified Benign prostatic hyperplasia without lower urinary tract symptoms N40.0 Lower urinary tract symptom presence: symptoms absent Neuropathy G62.9 Asthma, unspecified asthma severity, unspecified whether complicated, unspecified whether persistent J45.909 Asthma severity: unspecified severity Asthma persistence: unspecified Asthma complication type: unspecified 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 Continue flecainide 75 mg b.i.d., atenolol 12.5 mg p.o. at bedtime, rivaroxaban 20 mg daily, pravastatin 80 mg at bedtime (2) Hyperlipidemia: Code(s): E78.5 - Hyperlipidemia, unspecified Category: Medical Qualifiers: Hyperlipidemia type: unspecified Qualified Code(s): E78.5 - Hyperlipidemia, unspecified Plan: Tri 156/total chol 208/ldl 118/hdl 59 Reinforced low-cholesterol diet and activity as tolerated Continue pravastatin 80 mg p.o. at bedtime We will recheck lipid panel in 3 months (3) Benign prostate hyperplasia: Code(s): N40.0 - Benign prostatic hyperplasia without lower urinary tract symptoms Category: Medical Qualifiers: Lower urinary tract symptom presence: symptoms absent Qualified Code(s): N40.0 - Benign prostatic hyperplasia without lower urinary tract symptoms Plan: BPH-Reports that his symptom is tolerable. Continue finasteride 5 mg at bedtime, tamsulosin 0.4 mg q am. Follow up with urology as scheduled (4) Neuropathy: Comment: 20 min reviewing chart eval pt and documenting; referred Code(s): G62.9 - Polyneuropathy, unspecified Category: Medical Plan: BLE paresthesia that has been longstanding and stable no added intervention at this time. Will continue to monitor. (5) Asthma: Code(s): J45.909 - Unspecified asthma, uncomplicated Category: Medical Qualifiers: Asthma severity: unspecified severity Asthma persistence: unspecified Asthma complication type: unspecified Qualified Code(s): J45.909 - Unspecified asthma, uncomplicated Plan: The patient has intermittent sob that he had for years. He was evaluated by pulmonology, but the cause remains unknown; he was tried on multiple inhaler without resolution. 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 (7) Anxiety: Code(s): F41.9 - Anxiety disorder, unspecified Category: Medical Plan: Anxiety management includes Wellbutrin 150 mg daily, venlafaxine ER 37.5 MG QAM, venlafaxine ER 75 mg QAM. Denies si/hi. Follow psychiatry as scheduled; currently managed by Michelle Kingston (8) Right anterior shoulder pain: Code(s): M25.511 - Pain in right shoulder Category: Medical Plan: The patient reported a shoulder injury sustained two months ago while walking a dog, resulting in limited arm mobility for three months. An X-ray was performed, revealing no significant damage, but the patient experienced inflammation and soreness, which has since improved. Continue conservative measures like stretching, ROM, and warm/cold compresses on for 20 minute intervals as needed. Orders: Orders Vitamin D 25-OH Total 3 Months E78.5 - Hyperlipidemia, unspecified, F41.9 - Anxiety disorder, unspecified, I48.11 - Longstanding persistent atrial fibrillation, J45.909 - Unspecified asthma, uncomplicated, N40.0 - Benign prostatic hyperplasia without lower urinary tract symptoms Lipid Panel 3 Months E78.5 - Hyperlipidemia, unspecified, F41.9 - Anxiety disorder, unspecified, I48.11 - Longstanding persistent atrial fibrillation, J45.909 - Unspecified asthma, uncomplicated, N40.0 - Benign prostatic hyperplasia without lower urinary tract symptoms TSH reflex Free T4 3 Months E78.5 - Hyperlipidemia, unspecified, F41.9 - Anxiety disorder, unspecified, I48.11 - Longstanding persistent atrial fibrillation, J45.909 - Unspecified asthma, uncomplicated, N40.0 - Benign prostatic hyperplasia without lower urinary tract symptoms UA CC w/rflx Micro + Cult 3 Months E78.5 - Hyperlipidemia, unspecified, F41.9 - Anxiety disorder, unspecified, I48.11 - Longstanding persistent atrial fibrillation, J45.909 - Unspecified asthma, uncomplicated, N40.0 - Benign prostatic hyperplasia without lower urinary tract symptoms Comprehensive [place]. Panel Fast 3 Months E78.5 - Hyperlipidemia, unspecified, F41.9 - Anxiety disorder, unspecified, I48.11 - Longstanding persistent atrial fibrillation, J45.909 - Unspecified asthma, uncomplicated, N40.0 - Benign prostatic hyperplasia without lower urinary tract symptoms
[2025-07-02 14:31] VITALS: BP 132/76; PULSE 74; RESP 18; TEMP 36.3; O2SAT 95; BMI 27.4
== END 2025-07-02 15:07 | disposition home or self-care (01) ==
LOC: HO.HMCH 14:22
DX: I48.11 Longstanding persistent atrial fibrillation (principal); K51.319 Ulcerative (chronic) rectosigmoiditis with unspecified complications; E78.5 Hyperlipidemia, unspecified; N40.0 Benign prostatic hyperplasia without lower urinary tract symptoms; G62.9 Polyneuropathy, unspecified; J45.909 Unspecified asthma, uncomplicated; F41.9 Anxiety disorder, unspecified; M25.511 Pain in right shoulder

== ENCOUNTER → 2025-07-02 14:21 | Outpatient (BNVA) | payer MEDICARE, OTHER, SELFPAY | DX: I48.11 Longstanding persistent atrial fibrillation (principal); E78.5 Hyperlipidemia, unspecified; N40.0 Benign prostatic hyperplasia without lower urinary tract symptoms; G62.9 Polyneuropathy, unspecified; J45.909 Unspecified asthma, uncomplicated; K51.319 Ulcerative (chronic) rectosigmoiditis with unspecified complications; F41.9 Anxiety disorder, unspecified; M25.511 Pain in right shoulder | CPT/HCPCS: 99212 ==